=== PATIENT | female | born 1975 | race Caucasian/White ===

== ENCOUNTER 2019-06-12 09:23 | Emergency (ER) | payer BC, MEDICAID ==
[2019-06-12] MEDS ORDERED: Ketorolac 60 MG/2 ML SDV IM ONE (10:16)
[2019-06-12] MEDS ORDERED: Ketorolac 60 MG/2 ML SDV ONE (10:27)
--- NOTE | 2019-06-12 10:38 | EDM.PDOC ---
ED HPI GENERAL MEDICAL PROBLEM - General Stated Complaint: Headache, elevated BP Time Seen by Provider: 06/12/19 10:20 Source of Information: Reports: Patient - History of Present Illness INITIAL COMMENTS - FREE TEXT/NARRATIVE: Tamara presents to the emergency department today after not being able to get a clinic appointment for evaluation of elevated blood pressure. She states that for the last 24 hours, she had been checking her blood pressure just on her own accord. She notes that her top number has been running in the 140s systolic, while her bottom number is 100 or so. It has been at least this for the last 3 or 4 months as far she is aware. She really has only been documenting it on her own for the last 24 hours however. She has had recurrent migraines and has felt a bit of one over the last couple of days. She had some transient back discomfort possibly associated with hematuria I believe which seemed to run its course after hot packing for a couple of days. Since then she has really been okay in terms of her chronic back pain, but today notes that it is much more acute. She has had no injury. She denies any orthostasis , abdominal pain, GI or changes at all. She has not no chest pain, shortness of breath, or palpitations. She was started on Risperdal back in April, and describes a lot of adverse effects in the way of really vivid nightmares. She has spoke with her psychiatrist about weaning off of this. She really is not that excited about adding any new medications until her issues with Risperdal are all sorted out. She also had some other intolerances and perceived side effects including a 20 to 30 pound weight gain. Lower Back Pain Score (Numeric/FACES): 8 Headache Pain Score (Numeric/FACES): 6 - Related Data Allergies Allergy/AdvReac Type Severity Reaction Status Date / Time No Known Allergies Allergy Verified 05/02/15 10:15 Home Meds: Home Meds Citalopram [Citalopram Hbr] 40 mg PO DAILY 05/02/15 [History] ClonazePAM [KlonoPIN] 0.5 mg PO BID 05/02/15 [History] Levothyroxine [Sythroid] 100 mcg PO DAILY 05/02/15 [History] Nortriptyline HCl [Pamelor] 25 mg PO DAILY 03/25/16 [History] Fish Oil/DHA/EPA [Fish Oil 1,200 MG] 1 tab PO DAILY 06/12/19 [History] Nortriptyline 2 tab PO BEDTIME 06/12/19 [History] risperiDONE 1 mg PO BEDTIME 06/12/19 [History] Past Medical History HEENT History: Reports: Impaired Vision, Other (See Below) Other HEENT History: reading glasses Cardiovascular History: Reports: None Respiratory History: Reports: None, Other (See Below) Other Respiratory History: pneomonia and bronchitis when she was smoking Gastrointestinal History: Reports: Chronic Constipation, Other (See Below) Other Gastrointestinal History: ulcers, lactosis intolerant Genitourinary History: Reports: None [employer] CRATING History: Reports: None Musculoskeletal History: Reports: Fracture, Other (See Below) Other Musculoskeletal History: hyperextended right knee with knee had scope, injury to R tibial process with resulted in 3 surgeries, then additional surgery on ACL, PCL, MCL, LCL fx, fx R tib/fib/talus, broke toe as kid Neurological History: Reports: None Psychiatric History: Reports: Anxiety, Depression Endocrine/Metabolic History: Reports: Hypothyroidism Hematologic History: Reports: None Immunologic History: Reports: None Oncologic (Cancer) History: Reports: None Dermatologic History: Reports: None - Past Surgical History GI Surgical History: Reports: Appendectomy ED ROS GENERAL - Review of Systems Review Of Systems: Comprehensive ROS is negative, except as noted in HPI. ED EXAM, GENERAL - Physical Exam Exam: See Below General Appearance: Alert, WD/WN, No Apparent Distress, Anxious Eye Exam: Bilateral Eye: EOMI, Normal Inspection Ears: Hearing Grossly Normal Throat/Mouth: Normal Voice, No Airway Compromise Head: Atraumatic, Normocephalic Neck: Normal Inspection, Supple, Non-Tender, Full Range of Motion Respiratory/Chest: No Respiratory Distress, Lungs Clear, Normal Breath Sounds. No: Rales, Rhonchi, Wheezing Cardiovascular: Regular Rate, Rhythm, No Gallop, No JVD, No Murmur GI/Abdominal: Normal Bowel Sounds, Soft, Non-Tender Extremities: Normal Inspection, Normal Range of Motion, Non-Tender, No Pedal Edema, Normal Capillary Refill Neurological: Alert, Oriented, Normal Cognition Psychiatric: Anxious, Flat Affect Skin Exam: Warm, Dry, Intact Lymphatic: No Adenopathy Course - Vital Signs Text/Narrative:: Discussed what appears to be flares of her chronic recurrent headaches and back discomfort, more than really acute new changes. Otherwise discussed her elevated blood pressure in this regard as well. She will continue to work carefully with her psychiatrist to wean off the risperidone. We did provide her with an injection of ketorolac to hopefully help with her issues in terms of acute pain control right now. She certainly appears to be reliable to follow -up with her doctor and/or return with any problems in the interim. After she spoke with her RN, the patient was interested in trying lisinopril 10 mg daily. She wishes to continue on this on a chronic basis. Labs and urine were checked which were relatively unrevealing, and her Toradol injection helped with her headache and back discomfort, but even with this, her diastolic remained in the triple digit range, although she did not have any real symptoms of encephalopathy, it sounds like this is been going on for at least 3 months, and she would feel better about starting an antihypertensive. Discussed potential symptoms including angioedema, cough, and other adverse effects, and otherwise encouraged her to follow-up with her primary doctor, via tele-visit if needed. At some point, it would be worthwhile to get an EKG, although findings of left ventricular hypertrophy could be relatively nonspecific, I imagine she gets plenty of EKGs being on the Risperdal and following with psychiatry anyway. Last Recorded V/S: Last Vital Signs Temp 98.4 F 06/12/19 11:50 Pulse 79 06/12/19 11:50 Resp 18 06/12/19 11:50 BP 154/113 H 06/12/19 11:50 Pulse Ox 100 06/12/19 11:50 - Orders/Labs/Meds Labs: Laboratory Tests 06/12/19 06/12/19 06/12/19 Range/Units 11:00 11:30 11:30 WBC 9.7 (4.0-11.0) K/uL RBC 4.72 (3.80-5.80) M/uL Hgb 14.4 (11.5-16.5) g/dL Hct 41.7 (37.0-47.0) % MCV 88 (76-96) fL MCH 30.5 (27.0-32.0) pg MCHC 34.5 (31.0-35.0) g/dL RDW 13.4 (11.0-16.0) % Plt Count 358 (150-500) K/uL MPV 8.8 (6.0-10.0) fL Neut % (Auto) 63.9 (45.0-70.0) % Lymph % (Auto) 24.7 (20.0-40.0) % [place] % (Auto) 7.7 (3.0-10.0) % Eos % (Auto) 3.4 (1.0-5.0) % Baso % (Auto) 0.3 (0.0-0.5) % Neut # (Auto) 6.19 (2.00-7.50) K/uL Lymph # (Auto) 2.39 (1.50-4.00) K/uL [place] # (Auto) 0.75 (0.20-0.80) K/uL Eos # (Auto) 0.33 (0.04-0.40) K/uL Baso # (Auto) 0.03 (0.02-0.10) K/uL Sodium 143 (136-145) mmol/L Potassium 4.4 (3.5-5.1) mmol/L Chloride 105 (98-107) mmol/L Carbon Dioxide 26.4 (21.0-32.0) mmol/L Anion Gap 16.0 H (5.0-15.0) mmol/L BUN 14 (8-26) mg/dL Creatinine 0.95 (0.55-1.02) mg/dL Est Cr Clr Drug Dosing 70.74 mL/min Estimated GFR (MDRD) > 60 (>60) MLS/MIN BUN/Creatinine Ratio 14.7 (6-25) Glucose 95 (74-100) mg/dL Calcium 8.8 (8.5-10.1) mg/dL Total Bilirubin 0.3 (0.0-1.0) mg/dL AST 17 (15-37) U/L ALT 29 (12-78) U/L Alkaline Phosphatase 165 H (46-116) U/L Total Protein 7.7 (6.4-8.2) g/dL Albumin 3.9 (3.4-5.0) g/dL Globulin 3.8 (2.2-4.2) g/dL Albumin/Globulin Ratio 1.0 (0.8-2.0) Urine Color Yellow Urine Appearance Clear (CLEAR) Urine pH 5.5 (5.0-8.0) Ur Specific [place] 1.025 (1.003-1.030) Urine Protein Negative (NEGATIVE) mg/dL Urine Glucose (UA) Negative (NEGATIVE) mg/dL Urine Ketones Negative (NEGATIVE) mg/dL Urine Occult Blood Negative (NEGATIVE) Urine Nitrite Negative (NEGATIVE) Urine Bilirubin Negative (NEGATIVE) Urine Urobilinogen 0.2 (0.2-1.0) E.U./dL Ur Leukocyte Esterase Negative (NEGATIVE) Meds: Medications Discontinued Medications Generic Name Dose Route Start Last Admin Trade Name Freq PRN Reason Stop Dose Admin Ketorolac Tromethamine 60 mg 06/12/19 10:16 06/12/19 10:24 Toradol IM 06/12/19 10:17 60 mg ONETIME ONE Administration Ketorolac Tromethamine Confirm 06/12/19 10:27 06/12/19 11:13 Toradol Administered 06/12/19 10:28 Not Given Dose 60 mg .ROUTE .STK-MED ONE Departure - Departure Time of Disposition: 11:50 Disposition: Home, Self-Care 01 Condition: Good Clinical Impression: Hypertension Qualifiers: Hypertension type: unspecified Qualified Code(s): I10 - Essential (primary) hypertension - Discharge Information Instructions: Lisinopril tablets, Chronic Back Pain, [id number] Referrals: PCP,None [Primary Care Provider] - Forms: ED Department Discharge Additional Instructions: Start taking Lisinopril 10mg PO DAILY Follow up with primary care Doctor related to High Blood Pressure. May need HCTZ with BP medication. Call if any further questions [phone] Sepsis Event Note - Evaluation Sepsis Screening Result: No Definite Risk - Focused Exam Vital Signs: Vital Signs Temp Pulse Resp BP Pulse Ox 06/12/19 11:50 98.4 F 79 18 154/113 H 100 06/12/19 11:36 98.0 F 81 18 152/109 H 100 06/12/19 10:49 98 F 95 18 141/105 H 100 06/12/19 10:11 98.4 F 95 18 141/105 H 100 06/12/19 10:05 98 F 78 18 148/103 H 100 Date Exam was Performed: 06/12/19 Time Exam was Performed: 15:36
[2019-06-12 12:07] VITALS: BP 154/113; PULSE 79
== END 2019-06-12 12:02 | disposition home or self-care (01) ==
LOC: LB.ED 09:23
DX: I10 Essential (primary) hypertension (principal); F41.9 Anxiety disorder, unspecified; F32.9 Major depressive disorder, single episode, unspecified; E03.9 Hypothyroidism, unspecified; Z79.899 Other long term (current) drug therapy
CPT/HCPCS: 36415; 80053; 81003; 85025; 96372; 99283; J1885

== ENCOUNTER 2023-05-31 19:21 | Emergency (ER) | payer MEDICAID ==
[2023-05-31 20:41] VITALS: BP 124/89; PULSE 80
== END 2023-05-31 20:50 | disposition home or self-care (01) ==
LOC: LB.ED 19:21
DX: H60.332 Swimmer's ear, left ear (principal); E03.9 Hypothyroidism, unspecified; Z79.899 Other long term (current) drug therapy
CPT/HCPCS: 99282